=== PATIENT | male | born 1970 | race Caucasian/White ===

== ENCOUNTER 2018-12-16 07:05 | Emergency (ER) | payer OTHER ==
[2018-12-16 07:20] VITALS: BP 133/83; PULSE 94; TEMP 98.7; BMI 28.7
[2018-12-16] MEDS ORDERED: FAMOTIDINE 20 MG/50 ML IVPB 20 MG/50 ML MG IVPB ONE ×2 (08:00→08:22)
--- NOTE | 2018-12-16 08:01 | PDOC ---
History of Present Illness - General Chief Complaint: Pain Stated Complaint: ABDOMINAL PAIN Time Seen by Provider: 12/16/18 07:45 History Source: Patient Exam Limitations: No Limitations Past History - Past Medical History Allergies/Adverse Reactions: Allergies Allergy/AdvReac Type Severity Reaction Status Date / Time No Known Allergies Allergy Verified 12/16/18 07:20 Home Medications: Ambulatory Orders Escitalopram Oxalate [Lexapro -] 20 mg PO DAILY 12/16/18 Methylphenidate HCl [Ritalin LA] 20 mg PO DAILY 12/16/18 Valsartan [Diovan] 80 mg PO DAILY 12/16/18 COPD: No HTN: Yes Psychiatric Problems: Yes (anxiety) - Suicide/Smoking/Psychosocial Hx Smoking History: Current some day smoker Number of Cigarettes Smoked Daily: 1 Information on smoking cessation initiated: No *Physical Exam - Vital Signs Last Vital Signs Temp Pulse Resp BP Pulse Ox 98.7 F 94 H 18 133/83 99 12/16/18 07:17 12/16/18 07:17 12/16/18 07:17 12/16/18 07:17 12/16/18 07:17 - Physical Exam General Appearance: No: Apparent Distress Respiratory/Chest: positive: Lungs Clear, Normal Breath Sounds. negative: Respiratory Distress Cardiovascular: positive: Regular Rhythm, Regular Rate, S1, S2. negative: Murmur Gastrointestinal/Abdominal: positive: Normal Bowel Sounds, Soft. negative: Tender, Distended, Guarding, Rebound Musculoskeletal: negative: CVA Tenderness Integumentary: positive: Normal Color Neurologic: positive: Fully Oriented, Alert, Normal Mood/Affect Moderate Sedation - Procedure Monitoring Vital Signs: Procedure Monitoring Vital Signs Temperature 98.7 F 12/16/18 07:17 Pulse Rate 94 H 12/16/18 07:17 Respiratory Rate 18 12/16/18 07:17 Blood Pressure 133/83 12/16/18 07:17 O2 Sat by Pulse Oximetry (%) 99 12/16/18 07:17 Heart Score/ECG Review #1 NSR at 66 bpm, no ST-T changes 12/16/18 08:27 ED Treatment Course - LABORATORY CBC & Chemistry Diagram: 12/16/18 08:31 12/16/18 08:31 - RADIOLOGY Radiology Studies Ordered: Category Date Time Status CHEST PA & LAT [RAD] Stat Radiology 12/16/18 08:01 Ordered Medical Decision Making - Medical Decision Making 48 y/o M with hx of HTN, anxiety, depression presents with nonradiating epigastric pain, occasional nausea and bloating x 4 days. Had few episodes of loose stools yesterday, but not having currently. Has tried taking Advil, Mylanta, Simethicone without relief of pain. Also mentions having some dull/ achy substernal CP today around 4 hours ago. Denies fever, cough, SOB, vomiting , urinary complaints, dizziness. Currently smokes 3-4 cigs/week. Denies drug use. Epigastric pain; consider gastritis, ACS [less suspicious for cholecystitis, pancreatitis] Plan: Labs, EKG, CXR, trial of Pepcid, reassess 12/16/18 08:01 EKG nonischemic Initial labs unremarkable Patient resting comfortably, mentions feeling a bit better Will repeat trop and EKG at 11 12/16/18 10:03 Repeat EKG shows NSR at 67 bpm, no ischemic changes Repeat trop neg Stable for dc 12/16/18 13:01 *DC/Admit/Observation/Transfer Diagnosis at time of Disposition: Epigastric pain - Discharge Dispostion Disposition: HOME Condition at time of disposition: Stable Decision to Admit order: No - Referrals Referrals: Apolinar Kong MD [Primary Care Provider] - 2 Days - Patient Instructions Printed Discharge Instructions: DI for Epigastric Pain Additional Instructions: Thank you for choosing [facility]. It was a pleasure taking care of you. Your blood work here was unremarkable Recommend following up with your PCP in 2-3 day and also consider following up with GI doctor. Return to the Emergency Department if your symptoms worsen or persist, you have fever, shortness of breath, chest pain, severe abdominal pain, vomiting, diarrhea, black or bloody stools or other concerning symptoms. - Post Discharge Activity
[2018-12-16 09:00] LABS: BASO % 0.7 % (0-2.0); EOS % 1.4 % (0-4.5); HEMATOCRIT 43.6 % (35.4-49); HEMOGLOBIN 15.2 GM/dL (11.7-16.9); LYMPH % 30.1 % (8-40); MCH 31.9 pg (25.7-33.7); MCHC 34.8 g/dl (32.0-35.9); MEAN CELL VOLUME 91.6 fl (80-96); MEAN PLT VOLUME 8.1 fl (7.5-11.1); MONO % 10.8 % (3.8-10.2); PLATELET COUNT 290 K/MM3 (134-434); RBC 4.76 M/mm3 (4.00-5.60); WHITE BLOOD COUNT 6.6 K/mm3 (4.0-10.0)
[2018-12-16 09:21] LABS: ALBUMIN 4.1 g/dl (3.4-5.0); ALK PHOS 96 U/L (45-117); ANION GAP 6 MMOL/L (8-16); BILIRUBIN,TOTAL 0.4 mg/dL (0.2-1); BLOOD UREA NITROGEN 14 mg/dL (7-18); CALCIUM 9.4 mg/dL (8.5-10.1); CHLORIDE 101 mmol/L (98-107); CO2 30 mmol/L (21-32); CREATININE 0.9 mg/dL (0.55-1.3); GLUCOSE,RANDOM 116 mg/dL (74-106); POTASSIUM 4.8 mmol/L (3.5-5.1); SGOT/AST 25 U/L (15-37); SGPT/ALT 48 U/L (13-61); SODIUM 137 mmol/L (136-145); TOT PROT 7.5 g/dl (6.4-8.2)
--- NOTE | 2018-12-16 12:50 | EKG ---
Test Reason : Blood Pressure : / mmHG Vent. Rate : 067 BPM Atrial Rate : 067 BPM P-R Int : 142 ms QRS Dur : 090 ms QT Int : 430 ms P-R-T Axes : 059 074 069 degrees QTc Int : 454 ms NORMAL SINUS RHYTHM NORMAL ECG NO PREVIOUS ECGS AVAILABLE Confirmed by HEATHER PALMER MD ([id number]) on 12/16/2018 12:50:35 PM Referred By: Confirmed By:HEATHER PALMER MD
--- NOTE | 2018-12-17 12:57 | EKG ---
Test Reason : Blood Pressure : / mmHG Vent. Rate : 066 BPM Atrial Rate : 066 BPM P-R Int : 146 ms QRS Dur : 092 ms QT Int : 426 ms P-R-T Axes : 057 064 071 degrees QTc Int : 446 ms NORMAL SINUS RHYTHM NORMAL ECG NO PREVIOUS ECGS AVAILABLE Confirmed by HEATHER PALMER MD ([id number]) on 12/17/2018 12:56:58 PM Referred By: Confirmed By:HEATHER PALMER MD
== END 2018-12-16 13:48 | disposition home or self-care (01) ==
LOC: JER 07:05
PROC: 3E033GC Introduction of Other Therapeutic Substance into Peripheral Vein, Percutaneous Approach (ICD-10-PCS; principal; 2018-12-16)
DX: R10.13 Epigastric pain (principal); I10 Essential (primary) hypertension; F41.8 Other specified anxiety disorders; F32.9 Major depressive disorder, single episode, unspecified
CPT/HCPCS: 36415; 71046-TC-FY; 80053; 84484; 85025; 93005; 93010; 99283-25